=== PATIENT | male | born 1990 | race Two or more races ===

== ENCOUNTER 2025-01-07 06:55 | Emergency (ER) | payer OTHER ==
[~2025-01-07] VITALS: Ht 180.3 cm; Wt 149.7 kg
[2025-01-07] MEDS ORDERED: NORFLEX100MG PO (07:45)
[2025-01-07] MEDS ORDERED: KETOROLAC TROMETHAMINE 60 MG VIAL IM ONE ×2 (07:45→07:47)
[2025-01-07] MEDS ORDERED: ORPHENADRINE CITRATE 30 MG/ML AMPUL IM ONE (07:45)
[2025-01-07] MEDS ORDERED: ORPHENADRINE CITRATE 30 MG/ML AMPUL ONE (07:47)
[2025-01-07 08:00] VITALS: BP 110/70; O2SAT 100
== END 2025-01-07 08:00 | disposition home or self-care (01) ==
LOC: ER 06:55
DX: M54.2 Cervicalgia (principal)